=== PATIENT | female | born 1955 | race Caucasian/White ===

== ENCOUNTER → 2016-06-25 | Outpatient (CLI) | payer MEDICARE, MEDICAID ==
[~2016-06-25] MED LIST: /CARB4TA; /CARBXR20T; ACET65TA; ASPI81CH PO; BENADRYL25 PO; BUSP10TA PO; CALCWAF4 PO; CEFT500T; CHEW500C2 PO; EPIPENAD INJECTION; LAMI1SPR EXT; MAMMOGRAM; MULTCAP PO; MULTIVIT PO; OXYB5TA PO; OXYB5TAB4; TEGR200T PO; TEGRETOL; TRICOR48 PO; TUMS500C; VITAMIN A&D; VITAMIND PO; ZANT1TAB PO; ZOCO20TA PO; ZYPR5TAB; ZYPR5TAB2 PO; ZYPREXA; ZYPREXA PO; [UNRECOGNIZED DRUG - CODE] PO; [UNRECOGNIZED DRUG - CODE] PO; [UNRECOGNIZED DRUG - CODE] PO; [UNRECOGNIZED DRUG - CODE] PO; [UNRECOGNIZED DRUG - CODE] TOPICAL; coumadin
--- NOTE | 2016-06-25 10:46 | REP ---
BILATERAL MAMMOGRAM: Bilateral mammography performed in the M[facility] and CC projections and compared to prior studies, the most recent of which is 07/21/2015. Mild scattered fibroglandular tissue is present. Small subcentimeter right retroareolar nodule is unchanged. However, there is a new 6 mm nodule posterior to this in the lateral right breast. No other new mass is seen. No clustered microcalcifications are seen. IMPRESSION: ACR 0 incomplete. New 6 mm nodule lateral right breast. Recommend spot compression views and ultrasound to further evaluate. BI-RADS/ACR category 0 mammogram. Incomplete. Additional imaging and/or prior images are needed before a final assessment can be assigned. This mammogram was interpreted with the aid of an FDA-approved computer-aided detection system. The patient states she/he had a clinical breast exam in May 2016. The patient letter being requested is M0.
== END ==
LOC: M WHC 09:43
PROVIDERS: ATTEND Obstetrics & Gynecology
DX: R92.2 Inconclusive mammogram (principal)

== ENCOUNTER → 2016-06-28 | Outpatient (CLI) | payer MEDICARE, MEDICAID ==
--- NOTE | 2016-06-28 11:53 | REP ---
DIAGNOSTIC MAMMOGRAM RIGHT BREAST WITH RIGHT BREAST ULTRASOUND: Diagnostic mammogram right breast performed. Additional views show persistence of a nodule in the right breast which appears to be in region of 6 o'clock. Margins appear fairly smooth and well defined. Diameter is approximately 6 mm. Real-time sonographic evaluation of the lower aspect of the right breast demonstrates a cyst at 7 o'clock corresponding to the mammographic abnormality 6 x 3 x 6 mm. At 9 o'clock, there are two small hypoechoic nodules with internal flow with Doppler color evaluation. Each measures 4 mm in diameter. Other scattered tiny cysts are seen. IMPRESSION: Nodule confirmed in the inferior right breast corresponds to a cyst by ultrasound and is benign. At 9 o'clock, there are two 4 mm hypoechoic nodules present. These are probably benign. Prior ultrasound of the right breast 01/26/2009 did show a hypoechoic nodule at 9 o'clock position. IMPRESSION: ACR 3 probably benign. The nodule on the mammogram corresponds to a benign cyst. Incidental note is made of two small hypoechoic nodules 4 mm in diameter at 9 o'clock. At least one of these was present on a prior ultrasound of 2008. Recommend 6 month followup ultrasound of the right breast to ensure stability of these two hypoechoic nodules at 9 o'clock. BI-RADS/ACR category 3 mammogram. Probably benign findings. Initial short-term followup (usually 6 month) examination. This mammogram was interpreted with the aid of an FDA-approved computer-aided detection system. A. Negative x-ray reports should not delay biopsy if a dominant or clinically suspicious mass is present. B. Four to eight percent of cancers are not identified by x-ray. C. Adenosis and dense breasts may obscure an underlying neoplasm. The patient letter being requested is M3. Signed by Heriberto Valentine MD 06/28/2016 04:42 P
== END ==
LOC: M RAD 09:30
PROVIDERS: ATTEND Obstetrics & Gynecology
DX: N60.01 Solitary cyst of right breast (principal)
CPT/HCPCS: 76642; G0206